=== PATIENT | male | born 1945 | race Caucasian/White ===

== ENCOUNTER 2022-08-27 01:12 | Outpatient (CLI) | payer MEDICARE, OTHER | END 2022-08-27 01:13 | disposition critical access hospital (66) | LOC: EMS 01:12 | DX: E11.649 Type 2 diabetes mellitus with hypoglycemia without coma (principal); Z96.41 Presence of insulin pump (external) (internal) | CPT/HCPCS: A0425; A0427 ==

== ENCOUNTER 2022-08-27 01:41 | Emergency (ER) | payer MEDICARE, OTHER ==
[2022-08-27] MEDS ORDERED: DEXTROSE 10% 250 ML IV STA (01:55)
[2022-08-27 03:30] LABS: BASOPHILS # (AUTO) 0.1 10^3/uL (0.0-0.1); BASOPHILS % (AUTO) 0.7 %; EOSINOPHILS # (AUTO) 0.2 10^3/uL (0.0-0.7); HCT - HEMATOCRIT 46.9 % (42.0-52.0); HGB - HEMOGLOBIN 15.6 g/dL (14.0-18.0); LYMPHOCYTES # (AUTO) 1.7 10^3/uL (1.5-3.5); LYMPHOCYTES % (AUTO) 19.5 %; MEAN CORPUSCULAR HEMOGLOBIN 32.6 pg (27.0-31.0); MEAN CORPUSCULAR HGB CONC 33.3 g/dL (32.0-36.0); MEAN CORPUSCULAR VOLUME 98.1 fL (80.0-94.0); MEAN PLATELET VOLUME 11.3 fL (7.4-11.4); MONOCYTES # (AUTO) 0.7 10^3/uL (0.0-1.0); MONOCYTES % (AUTO) 8.6 %; NEUTROPHILS # (AUTO) 5.9 10^3/uL (1.5-6.6); PLT - PLATELET COUNT 182 10^3/uL (130-450); RED BLOOD COUNT 4.78 10^6/uL (4.70-6.10); RED CELL DISTRIBUTION WIDTH 12.9 % (12.0-15.0); WHITE BLOOD COUNT 8.5 x10^3/uL (4.8-10.8)
[2022-08-27 03:43] LABS: ALBUMIN 3.9 g/dL (3.2-5.5); ALBUMIN/GLOBULIN RATIO 1.1 (1.0-2.2); CALCIUM 8.9 mg/dL (8.5-10.3); CREATININE 0.9 mg/dL (0.6-1.2); POTASSIUM 3.9 mmol/L (3.5-5.0); TOTAL PROTEIN 7.3 g/dL (6.7-8.2)
--- NOTE | 2022-08-27 04:24 | ED Physician Documentation ---
PD HPI ALTERED MENTAL STATUS - Stated complaint Stated Complaint: LOW BLOOD SUGAR - Chief complaint Chief Complaint: General - History obtained from History obtained from: Patient, Family - Additional information Additional information: HPI from patient as well as spouse. Spouse says they were asleep in bed when , at approximately 1 AM , woke due to patient's unusually loud, sonorous breathing. She tried to wake patient but he would not respond to verbal/tactile stimulus and thus she called 911. EMS found patient to have GCS 3 and FSBS 20. They administered 1 amp D50 with subsequent FSBS 105 and rapid improvement of GCS to 15 by the time of ED arrival. On ED arrival, FSBS is 76. Patient uses an insulin pump. He feels well, and has felt well during the day. He does not know why his blood sugar was low tonight. also notes that the pump is supposed to alarm when the blood sugar drops below a preset number and she did not hear any such alarm. Upon arrival to ED, the insulin pump is turned off (it is still detecting the blood sugar but delivery of insulin is shut off for now). 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 denies: Generalized weakness, Headache PD PAST MEDICAL HISTORY - Past Medical History Past Medical History: Yes Cardiovascular: Hypertension, High cholesterol Endocrine/Autoimmune: Type 1 diabetes - Allergies Allergies/Adverse Reactions: Allergies Allergy/AdvReac Type Severity Reaction Status Date / Time No Known Drug Allergies Allergy Verified 08/27/22 02:00 - Social History Does the pt smoke?: No Smoking Status: Never smoker Does the pt drink ETOH?: Yes ETOH Use: Wine Does the pt have substance abuse?: No - Immunizations Immunizations are current?: Yes - POLST Patient has POLST: No PD ED PE NORMAL - Vitals Vital signs reviewed: Yes - General General: Alert and oriented X 3, No acute distress, Well developed/nourished - HEENT HEENT: PERRL, EOMI, Moist mucous membranes - Neck Neck: Supple, no meningeal sign - Cardiac Cardiac: RRR, No murmur - Respiratory Respiratory: No respiratory distress, Clear bilaterally - Abdomen Abdomen: Soft, Non tender - Derm Derm: Normal color, Warm and dry - Neuro Neuro: Alert and oriented X 3, dog catcher 2-12 intact, No motor deficit, No sensory deficit, Normal speech Eye Opening: Spontaneous Motor: Obeys Commands Verbal: Oriented GCS Score: 15 - Psych Psych: Normal mood, Normal affect Results - Vitals Vitals: Oxygen O2 Source Room air - Labs Labs: Laboratory Tests 08/27/22 08/27/22 08/27/22 02:36 03:27 03:27 WBC 8.5 RBC 4.78 Hgb 15.6 Hct 46.9 MCV 98.1 H MCH 32.6 H MCHC 33.3 RDW 12.9 Plt Count 182 MPV 11.3 Neut # (Auto) 5.9 Lymph # (Auto) 1.7 [place] # (Auto) 0.7 Eos # (Auto) 0.2 Baso # (Auto) 0.1 Absolute Nucleated RBC 0.00 Nucleated RBC % 0.0 Sodium 140 Potassium 3.9 Chloride 105 Carbon Dioxide 23 Anion Gap 12.0 BUN 23 H Creatinine 0.9 Estimated GFR (MDRD) 82 L Glucose 130 H POC Whole Bld Glucose 130 H Calcium 8.9 Total Bilirubin 1.0 AST 20 ALT 17 Alkaline Phosphatase 39 L Total Protein 7.3 Albumin 3.9 Globulin 3.4 Albumin/Globulin Ratio 1.1 Lipase 24 PD Medical Decision Making - ED course Complexity details: reviewed results, re-evaluated patient, considered differential, d/w patient, d/w family ED course: Patient is given 25grams dextrose in ED (administered as 250ml D10), as his blood sugar had increased from 20 to 105 with D50 in field, but already was down to 76 by the time he arrives to ED. He remains asymptomatic during ED stay and his blood sugars (using his insulin pump to check) remain in 100-160 range during his stay. CBC and ER abdominal panel are without concerning results (blood sugar on ER abdominal panel is 130. It is unclear why his blood sugar dropped so low tonight. He says he did not have unusual PO intake (no more nor less than usual) at dinner and prior to going to bed. Malfunction of the insulin pump is possible, and I recommended that he keep the insulin pump off when napping and when going to sleep until he can follow up with his PMD to see if the pump is working properly. I advised him that he can keep the pump on when awake as long as someone is with him to monitor for signs/symptoms of hypoglycemia. Departure - Departure Disposition: 01 Home, Self Care Clinical Impression: Hypoglycemia Condition: Good Instructions: Hypoglycemia, ED Diabetes Hypoglycemia Insulin React Comments: Your blood sugar was dangerously low tonight. Fortunately, it responded to dextrose given through the IV in combination with turning off the insulin pump. The blood test performed in the emergency department tonight had no concerning findings and the blood sugar on the blood drawn in the ER was 130. It is unclear why your blood sugar got so low tonight. As we discussed, it is possible that the pump failed. I recommend that you use the pump to check your blood sugars throughout the day, and I think it is reasonable to have the pump on and functioning when you are awake; you should have someone with you today so that if it delivers too much insulin and/or your blood sugar drops too low, someone will be watching you to monitor your mental status. If you are going to take a nap or go to sleep, I recommend you turn the pump off entirely. As we discussed, it is acceptable for your blood sugar to run a little high (even into the 200s range) for a short period such as overnight, but it is an immediate danger if your blood sugar drops too low. Contact your primary care provider in the morning when the office opens to apprise them of the visit to the ER and arrange for immediate follow-up appointment so they can reassess the situation and hopefully assess whether or not there is a malfunction of the insulin pump. Discharge Date/Time: 08/27/22 05:33
[2022-08-27 05:33] VITALS: BP 129/76
== END 2022-08-27 05:33 | disposition home or self-care (01) ==
LOC: ED 01:41
DX: E10.649 Type 1 diabetes mellitus with hypoglycemia without coma (principal); I10 Essential (primary) hypertension
CPT/HCPCS: 36415; 80053; 83690; 85025; 96365; 99284; J3490

== ENCOUNTER 2023-01-04 14:14 | Outpatient (CLI) | payer MEDICARE | END 2023-01-04 14:15 | disposition critical access hospital (66) | LOC: EMS 14:14 | DX: R47.81 Slurred speech (principal); R47.1 Dysarthria and anarthria | CPT/HCPCS: A0425; A0429 ==

== ENCOUNTER 2023-01-04 14:19 | Emergency (ER) | payer MEDICARE ==
--- NOTE | 2023-01-04 14:26 | ED Physician Documentation ---
History of Present Illness - Stated complaint Stated Complaint: CODE STROKE - Additonal information Additional information: 77-year-old male is brought to the emergency department under code stroke protocol for evaluation of slurred speech and difficulty with word finding. Symptoms began at 1345. Patient is currently residing at [facility]. Has past medical history of type 1 diabetes, hyperlipidemia, hypertension, right toe cellulitis with associated chronic ulceration of the foot and osteomyelitis. 1420: Presentation to the emergency department in the ambulance rig I personally evaluated the patient. He was alert and oriented with no obvious focal neurodef icits. No slurred speech or difficulty with word finding. Initial NIHSS of 0. Blood glucose for EMS was 168. Reportedly the patient may have received an anticoagulant 10 days ago. In review of the [facility] medication report I do not see any current anticoagulants including Plavix or aspirin. meds: Augmentin BID, Doxycycline bid, lisinopril 20 qd, atorvastatin 20 mg qd, miralax prn, sennakot prn Review of Systems Skin: reports: Reviewed and negative Musculoskeletal: reports: Reviewed and negative Neurologic: reports: Difficulty speaking PD PAST MEDICAL HISTORY - Past Medical History Cardiovascular: Hypertension, High cholesterol Endocrine/Autoimmune: Type 1 diabetes - Present Medications Home Medications: Ambulatory Orders Medication Instructions Recorded Confirmed Aspirin [Terrell Aspirin] 81 mg PO DAILY 30 Days #30 tab 01/04/23 - Allergies Allergies/Adverse Reactions: Allergies Allergy/AdvReac Type Severity Reaction Status Date / Time No Known Drug Allergies Allergy Verified 08/27/22 02:00 - Social History Does the pt smoke?: No Smoking Status: Never smoker Does the pt drink ETOH?: Yes Does the pt have substance abuse?: No - Immunizations Immunizations are current?: Yes - POLST Patient has POLST: No PD ED PE NORMAL - General General: Alert and oriented X 3, No acute distress, Well developed/nourished - HEENT HEENT: Atraumatic - Cardiac Cardiac: RRR, No murmur, Strong equal pulses - Respiratory Respiratory: No respiratory distress, Clear bilaterally - Abdomen Abdomen: Normal bowel sounds, Soft - Derm Derm: Normal color, Warm and dry, Other (Right foot is wrapped with bandages.) - Extremities Extremities: No deformity - Neuro Neuro: Alert and oriented X 3, outreach director 2-12 intact Eye Opening: Spontaneous Motor: Obeys Commands Verbal: Oriented GCS Score: 15 Results - Vitals Vitals: Vital Signs - 24 hr 01/04/23 14:37 Temperature 37.1 C Heart Rate 86 Respiratory 20 Rate Blood Pressure 116/76 O2 Saturation 97 Oxygen O2 Source Room air - EKG (time done) 1503 EKG releavant findings:: EKG personally interpreted by author of this note. Relevant findings are: Rate: Rate (enter#) (85) Rhythm: NSR [place]: Normal Intervals: Normal [place]. No: Prolonged QT QRS: Normal Ischemia: Q waves (inferior leads) Compare to prior EKG: Old EKG unavailable Computer interpretation: Agree with computer - Labs Labs: Laboratory Tests 01/04/23 01/04/23 01/04/23 14:59 14:59 14:59 WBC 8.9 RBC 4.38 L Hgb 14.3 Hct 42.5 MCV 97.0 H MCH 32.6 H MCHC 33.6 RDW 12.5 Plt Count 451 H MPV 10.6 Neut # (Auto) 5.8 Lymph # (Auto) 1.8 [place] # (Auto) 0.9 Eos # (Auto) 0.3 Baso # (Auto) 0.1 Absolute Nucleated RBC 0.00 Nucleated RBC % 0.0 PT 14.0 H INR 1.3 H Sodium 134 L Potassium 3.5 Chloride 103 Carbon Dioxide 24 Anion Gap 7.0 BUN 19 Creatinine 0.8 Estimated GFR (MDRD) 94 Glucose 145 H Calcium 9.3 Total Bilirubin 0.8 AST 18 ALT 10 Alkaline Phosphatase 42 Total Protein 7.2 Albumin 3.4 Globulin 3.8 Albumin/Globulin Ratio 0.9 L Lipase 5 L - Rads (name of study) CT head stroke Relevant Findings:: Final report received (No intracranial hemorrhage is seen. Lateral ventricles are abnormally prominent and more prominent would be expected given the degree of underlying sulcal atrophy. Please consider normal pressure hydrocephalus.) cxr Relevant Findings:: Final report received (no acute cardiopulmonary process) angio head/neck Relevant Findings:: Final report received (No areas of hemodynamically significant stenosis, vascular occlusion or aneurysmal dilation within anterior circulation or posterior circulation. No areas of hemodynamically significant stenosis, occlusion or aneurysmal dilation within the neck vasculature) PD Medical Decision Making - ED course Complexity details: reviewed old records, reviewed results, re-evaluated patient, d/w patient ED course: 77-year-old male presents to the emergency department for evaluation of acute onset slurred speech and aphasia that occurred at 1345. By the time he had arrived to the emergency department at 1420 his NIHSS was 0 and the symptoms had fully resolved. Patient does have a past medical history most significant for insulin-dependent type 1 diabetes, hypertension and hyperlipidemia. He was recently discharged from [facility] for treatment of osteomyelitis of the right foot and is currently rehabilitating at [facility]. He has no history of A-fib, previous CVA or TIA. However given the symptoms he was triaged under code stroke protocol. My initial presentation and exam with him revealed an NIHSS of 0. He was sent however to the CT scanner and telestroke was notified. 1450: I have spoken with Dr. Nicole telestroke neurologist. Patient is not a TNK candidate given the resolved symptoms. He recommends angios of the head and neck. Loading the patient with aspirin and statin and considering outpatient Holter monitoring in the future. I did obtain CBC, electrolytes and PT/INR. Per my interpretation no acute worrisome abnormalities. His EKG showed sinus rhythm not atrial fibrillation. CT angios of the head and neck were without findings to suggest aneurysm dilation or stenosis. CT of the head was also unremarkable. On reevaluation the patient remains free of any focal neurodeficits. Clinically history is suggestive of a TIA. Patient will be discharged back to [facility]. The recommendation is to begin taking a daily aspirin after being loaded with 325 of aspirin here. He should be referred for an outpatient echocardiogram and Holter monitor. Advised that he will need prompt follow-up with his PCP in order to help arrange this. Usual emergent return precautions for worsening symptoms was discussed. Departure - Departure Disposition: Home, Self Care Clinical Impression: TIA (transient ischemic attack) Condition: Stable Record reviewed to determine appropriate education?: Yes Instructions: ED Transient Ischemic Attack Prescriptions: Aspirin [Terrell Aspirin] 81 mg PO DAILY 30 Days #30 tab Comments: You are seen today in the emergency department because for a brief period of time you had slurred speech and difficulty with word finding. By the time you presented to the emergency department your symptoms have fully resolved. As discussed at the bedside it sounds as though you have likely had a transient ischemic attack or a "mini stroke". This is a form of a stroke where there has been no permanent damage to the brain and the symptoms have fully resolved. You do have multiple risk factors for strokes that include age, gender diabetes and hypertension. You Do need to start taking a daily 81 mg aspirin. It is critical that you discuss this ED visit with your primary provider. You should be referred emergently for an echocardiogram of the heart as well as consideration of a Holter monitor. You can continue to take your other usual medications and antibiotics. Return immediately to the ER for any new or worsening symptoms NIHSS - Time Time: 14:20 - Level of Consciousness Level of consciousness: (0) Alert, Keenly responsive LOC Questions: (0) Answers both Q's correct LOC Commands: (0) Performs both correctly - Gaze Best Gaze: (0) Normal - Visual Visual: (0) No loss - Facial Palsy Facial Palsy: (0) Normal, symmetrical movement - Motor Arms (both separate) Motor Arm (right): (0) No drift Motor Arm (left): (0) No drift - Motor Legs (both separate) Motor Leg (right): (0) No drift Motor Leg (left): (0) No drift - Limb Ataxia Limb Ataxia: (0) Absent - Sensory Sensory: (0) Normal - Best Language Best Language: (0) No aphasia - Dysarthria Dysarthria: (0) Normal - Extinction and Inattention (formally neg Extinction and inattention: (0) No abnormality - Total Score/Results Total Score/Result: 0
--- NOTE | 2023-01-04 14:47 | CT Report ---
PROCEDURE: Head W/O Stroke Protocol INDICATIONS: aphasia, slurred speech TECHNIQUE: Noncontrast 4.5 mm thick angled axial sections acquired from the foramen magnum to the vertex, with c oronal reformats. For radiation dose reduction, the following was used: automated exposure control, adjustment of mA and/or kV according to patient size. COMPARISON: None. FINDINGS: Image quality: Excellent. CSF spaces: Basal cisterns are patent. No extra-axial fluid collections. Ventricles are symmetric, yet they are enlarged and are larger than would be expected, given the degree of sulcal atrophy. Brain: No midline shift. No intracranial masses or hemorrhage. [place]-white matter interface is norm al. Age-appropriate brain parenchymal volume loss and chronic small vessel ischemic change can be se en. Skull and face: Calvarium and visualized facial bones are intact, without suspicious lesions. Sinuses: Visualized sinuses and mastoids are clear. IMPRESSION: No intracranial hemorrhage is seen. The lateral ventricles are abnormally prominent and are more prominent than would be expected, given the degree of underlying sulcal atrophy. Please consider normal pressure hydrocephalus. Note: Case discussed by telephone with Chey Conn at 1:45 PM [place] time on 01/04/2023. This study fulfills neurological imaging criteria for inclusion or exclusion of acute stroke therapie s based on available published neurological imaging guidelines. Reviewed by: Theodore Martin MD on 01/04/2023 1:46 PM [facility] Approved by: Theodore Martin MD on 01/04/2023 1:46 PM AKDT Station ID: [id number]
[2023-01-04] MEDS ORDERED: ASPIRIN 325 MG TABLET PO STA (14:49)
--- NOTE | 2023-01-04 15:01 | XRAY Report ---
PROCEDURE: Chest 1 View X-Ray INDICATIONS: Chest Pain TECHNIQUE: One view of the chest was acquired. COMPARISON: None. FINDINGS: Surgical changes and devices: None. Lungs and pleura: No pleural effusions or pneumothorax. Lungs are clear. Mediastinum: Mediastinal contours appear normal. Heart size is normal. Bones and chest wall: No suspicious bony lesions. Overlying soft tissues appear unremarkable. IMPRESSION: No acute cardiopulmonary process. Reviewed by: Anahi De La Cruz MD on 01/04/2023 3:00 PM PDT Approved by: Anahi De La Cruz MD on 01/04/2023 3:00 PM PDT Station ID: [id number]
[2023-01-04 15:10] LABS: BASOPHILS # (AUTO) 0.1 10^3/uL (0.0-0.1); BASOPHILS % (AUTO) 0.9 %; EOSINOPHILS # (AUTO) 0.3 10^3/uL (0.0-0.7); EOSINOPHILS % (AUTO) 3.5 %; HCT - HEMATOCRIT 42.5 % (42.0-52.0); HGB - HEMOGLOBIN 14.3 g/dL (14.0-18.0); LYMPHOCYTES # (AUTO) 1.8 10^3/uL (1.5-3.5); LYMPHOCYTES % (AUTO) 20.7 %; MEAN CORPUSCULAR HEMOGLOBIN 32.6 pg (27.0-31.0); MEAN CORPUSCULAR HGB CONC 33.6 g/dL (32.0-36.0); MEAN PLATELET VOLUME 10.6 fL (7.4-11.4); MONOCYTES # (AUTO) 0.9 10^3/uL (0.0-1.0); MONOCYTES % (AUTO) 10.1 %; NEUTROPHILS # (AUTO) 5.8 10^3/uL (1.5-6.6); NEUTROPHILS % (AUTO) 64.6 %; PLT - PLATELET COUNT 451 10^3/uL (130-450); RED BLOOD COUNT 4.38 10^6/uL (4.70-6.10); RED CELL DISTRIBUTION WIDTH 12.5 % (12.0-15.0); WHITE BLOOD COUNT 8.9 x10^3/uL (4.8-10.8)
--- NOTE | 2023-01-04 15:12 | CT Report ---
PROCEDURE: CT Angio Head/Neck INDICATIONS: aphasia, slurred speech TECHNIQUE: Pre-contrast 4.5 mm thick sections acquired from the foramen magnum to the vertex. After the adminis tration of intravenous contrast, 1 mm thick sections acquired from the aortic arch through the [place]. Post-contrast 4.5 mm thick sections then re-acquired from the foramen magnum to the vert ex. 3-dimensional [id number] (MIP) and/or volume rendering reformats were acquired of the central intracranial vasculature and neck separately. For radiation dose reduction, the foll owing was used: automated exposure control, adjustment of mA and/or kV according to patient size. COMPARISON: CT head 01/04/2023 FINDINGS: Image quality: Excellent. BRAIN: Brain is grossly normal. No areas of acute hemorrhage or mass lesion. Atrophy and microvascular ische daniel changes are present. Brain is protocol for CTA. HEAD CT ANGIOGRAPHY: Anterior circulation: Intracranial internal carotid arteries are normal in size and flow. The flow within the paired anterior cerebral arteries is normal and symmetric. The flow within the middle cer ebral arteries is normal and symmetric. The anterior communicating artery is seen. No aneurysms are seen. Posterior circulation: Mild left vertebral artery dominance. Visualized portions of the vertebral art eries demonstrate normal caliber, and join to form a normal appearing basilar artery. Flow within th e posterior cerebral arteries is normal and symmetric. No aneurysms are seen. NECK CT ANGIOGRAPHY: Carotid system: The great vessels demonstrate a conventional anatomy as they arise from the aortic a rch. The origins of the common carotid arteries appear patent. The common carotid arteries demonstr ate normal caliber and courses. The bifurcation regions are both widely patent. The internal caroti d arteries demonstrate normal calibers and courses. Posterior circulation: The origins of the vertebral arteries both appear widely patent. The more montes perior extracranial portions of both vertebral arteries also demonstrate normal courses and calibers. They join to form a normal appearing basilar artery. Soft tissues: Visualized neck soft tissues demonstrate no suspicious abnormalities. Bones: No suspicious bony lesions. Visualized cervical spine appears normally aligned. IMPRESSION: 1. No acute intracranial process. 2. No areas of hemodynamically significant stenosis, vascular occlusion or aneurysmal dilation within the anterior circulation. 3. No areas of hemodynamically significant stenosis, vascular occlusion or aneurysmal dilation within the posterior circulation. 4. There are no areas of hemodynamically significant stenosis, vascular occlusion or aneurysmal dilat ion within the neck vasculature. The estimate of stenosis included in the report of the imaging study was calculated using the NASCET method Reviewed by: Anahi De La Cruz MD on 01/04/2023 3:11 PM PDT Approved by: Anahi De La Cruz MD on 01/04/2023 3:11 PM PDT Station ID: [id number]
[2023-01-04 15:20] LABS: ALBUMIN 3.4 g/dL (3.2-5.5); ALBUMIN/GLOBULIN RATIO 0.9 (1.0-2.2); BILIRUBIN,TOTAL 0.8 mg/dL (0.2-1.0); CALCIUM 9.3 mg/dL (8.5-10.3); CREATININE 0.8 mg/dL (0.6-1.3); INR 1.3 (0.8-1.2); POTASSIUM 3.5 mmol/L (3.5-4.5); TOTAL PROTEIN 7.2 g/dL (6.4-8.9)
[2023-01-04 17:26] VITALS: BP 148/65; O2SAT 100
[2023-01-04] MEDS ORDERED: iohexoL-300 100 ML VIAL IVP ONE (20:07)
== END 2023-01-04 17:30 | disposition home or self-care (01) ==
LOC: EDUNIT# → ED 14:19
DX: G45.9 Transient cerebral ischemic attack, unspecified (principal); I10 Essential (primary) hypertension; E10.9 Type 1 diabetes mellitus without complications
CPT/HCPCS: 36415; 70450; 70496; 70498; 71045; 80053; 83690; 85025; 85610; 93005; 99284; A9270; Q9967

== ENCOUNTER 2023-01-10 08:00 | Outpatient (CLI) | payer MEDICARE ==
[2023-01-10 20:35] LABS: BASOPHILS # (AUTO) 0.1 10^3/uL (0.0-0.1); BASOPHILS % (AUTO) 1.1 %; EOSINOPHILS # (AUTO) 0.3 10^3/uL (0.0-0.7); HCT - HEMATOCRIT 47.3 % (42.0-52.0); HGB - HEMOGLOBIN 15.6 g/dL (14.0-18.0); LYMPHOCYTES % (AUTO) 28.8 %; MEAN CORPUSCULAR HEMOGLOBIN 32.2 pg (27.0-31.0); MEAN CORPUSCULAR VOLUME 97.5 fL (80.0-94.0); MEAN PLATELET VOLUME 11.2 fL (7.4-11.4); MONOCYTES # (AUTO) 0.8 10^3/uL (0.0-1.0); MONOCYTES % (AUTO) 11.3 %; NEUTROPHILS # (AUTO) 3.8 10^3/uL (1.5-6.6); NEUTROPHILS % (AUTO) 54.7 %; PLT - PLATELET COUNT 369 10^3/uL (130-450); RED BLOOD COUNT 4.85 10^6/uL (4.70-6.10); RED CELL DISTRIBUTION WIDTH 12.6 % (12.0-15.0)
[2023-01-10 20:54] LABS: ALBUMIN 3.9 g/dL (3.2-5.5); BILIRUBIN,TOTAL 1.1 mg/dL (0.2-1.0); CREATININE 0.8 mg/dL (0.6-1.3); POTASSIUM 3.8 mmol/L (3.5-4.5); TOTAL PROTEIN 7.8 g/dL (6.4-8.9)
== END 2023-01-10 23:59 | disposition home or self-care (01) ==
LOC: LAB.R 08:00
DX: M62.81 Muscle weakness (generalized) (principal); R26.89 Other abnormalities of gait and mobility; I10 Essential (primary) hypertension
CPT/HCPCS: 36415; 80053; 85025

== ENCOUNTER 2023-01-17 13:42 | Outpatient (CLI) | payer MEDICARE ==
[2023-01-17 13:48] LABS: BASOPHILS # (AUTO) 0.1 10^3/uL (0.0-0.1); BASOPHILS % (AUTO) 0.8 %; EOSINOPHILS # (AUTO) 0.4 10^3/uL (0.0-0.7); EOSINOPHILS % (AUTO) 4.4 %; HCT - HEMATOCRIT 42.9 % (42.0-52.0); HGB - HEMOGLOBIN 14.6 g/dL (14.0-18.0); LYMPHOCYTES # (AUTO) 2.1 10^3/uL (1.5-3.5); LYMPHOCYTES % (AUTO) 24.9 %; MEAN CORPUSCULAR HEMOGLOBIN 32.5 pg (27.0-31.0); MEAN CORPUSCULAR VOLUME 95.5 fL (80.0-94.0); MEAN PLATELET VOLUME 11.5 fL (7.4-11.4); MONOCYTES # (AUTO) 0.8 10^3/uL (0.0-1.0); MONOCYTES % (AUTO) 9.1 %; NEUTROPHILS % (AUTO) 60.6 %; PLT - PLATELET COUNT 338 10^3/uL (130-450); RED BLOOD COUNT 4.49 10^6/uL (4.70-6.10); RED CELL DISTRIBUTION WIDTH 12.3 % (12.0-15.0); WHITE BLOOD COUNT 8.3 x10^3/uL (4.8-10.8)
[2023-01-17 14:05] LABS: ALBUMIN 3.8 g/dL (3.2-5.5); ALBUMIN/GLOBULIN RATIO 1.1 (1.0-2.2); BILIRUBIN,TOTAL 0.8 mg/dL (0.2-1.0); CALCIUM 9.7 mg/dL (8.5-10.3); CREATININE 0.9 mg/dL (0.6-1.3); TOTAL PROTEIN 7.2 g/dL (6.4-8.9)
== END 2023-01-17 13:43 | disposition home or self-care (01) ==
LOC: LAB.R 13:42
PROVIDERS: ATTEND Registered Nurse
DX: M86.171 Other acute osteomyelitis, right ankle and foot (principal)
CPT/HCPCS: 80053; 85025

== ENCOUNTER 2023-04-02 18:56 | Emergency (ER) | payer MEDICARE ==
--- NOTE | 2023-04-02 19:28 | ED Physician Documentation ---
History of Present Illness - Stated complaint Stated Complaint: FATIGUE/NAUSEA/VOMIT - Chief complaint Chief Complaint: General - History obtained from History obtained from: Patient, Family - Additonal information Additional information: 77-year-old gentleman with longstanding diabetes and peripheral neuropathy due to same with insulin pump in place. Last 3 days or so he has been feeling ill with profound fatigue and chills. He is still in wound care regarding the right foot and has an active ulcer there. Denies cough, abdominal pain, changes in bowel movements, urinary symptoms. PD PAST MEDICAL HISTORY - Past Medical History Past Medical History: Yes Cardiovascular: Hypertension, High cholesterol Endocrine/Autoimmune: Type 1 diabetes - Past Surgical History Past Surgical History: Yes - Present Medications Home Medications: Ambulatory Orders Medication Instructions Recorded Confirmed Aspirin [Green Aspirin] 81 mg PO DAILY 30 Days #30 tab 01/04/23 04/02/23 Amox/Clav 875/125 [Augmentin] 1 each PO Q12H #20 tablet 04/02/23 Insulin Aspart [Novolog] 100 unit SQ .CONTINUOUS 04/02/23 04/02/23 Lisinopril [Zestril] 20 mg PO DAILY 04/02/23 04/02/23 Simvastatin [Zocor] 20 mg PO DAILY 04/02/23 04/02/23 - Allergies Allergies/Adverse Reactions: Allergies Allergy/AdvReac Type Severity Reaction Status Date / Time No Known Drug Allergies Allergy Verified 04/02/23 19:14 - Social History Does the pt smoke?: No Smoking Status: Never smoker Does the pt drink ETOH?: Yes Does the pt have substance abuse?: No - Immunizations Immunizations are current?: Yes - POLST Patient has POLST: No PD ED PE NORMAL - Vitals Vital signs reviewed: Yes (Mild resting tachycardia) - General General: Alert and oriented X 3, Other (Having shaking chills) - HEENT HEENT: PERRL, EOMI - Neck Neck: Supple, no meningeal sign, No bony TTP - Cardiac Cardiac: No murmur, Other (Mild resting tachycardia without murmur, regular) - Respiratory Respiratory: No respiratory distress, Clear bilaterally - Abdomen Abdomen: Non tender - Back Back: No CVA TTP, No spinal TTP - Derm Derm: Normal color, Warm and dry - Extremities Extremities: Other (2 x 1 cm purulent based ulcer with mild overlying cellulitis laterally on the right foot over the fifth metatarsal) - Neuro Neuro: Alert and oriented X 3, Normal speech Results - Vitals Vitals: Vital Signs - 24 hr 04/02/23 19:03 Temperature 37.3 C Heart Rate 102 H Respiratory 18 Rate Blood Pressure 132/64 H O2 Saturation 96 Oxygen O2 Source Room air - EKG (time done) 1933 EKG releavant findings:: EKG personally interpreted by author of this note. Relevant findings are: Rate: Rate (enter#) (101) Rhythm: Sinus tachycardia, LAE [place]: Normal Intervals: Normal SC QRS: Low voltage Ischemia: Non specific changes - Labs Labs: Microbiology 04/02/23 19:49 Wound Culture - Preliminary Foot - Right Laboratory Tests 04/02/23 04/02/23 04/02/23 19:10 19:42 19:42 WBC 12.1 H RBC 4.24 L Hgb 13.8 L Hct 42.4 MCV 100.0 H MCH 32.5 H MCHC 32.5 RDW 13.3 Plt Count 330 MPV 10.2 Neut # (Auto) 10.3 H Lymph # (Auto) 0.5 L Eddy # (Auto) 1.2 H Eos # (Auto) 0.0 Baso # (Auto) 0.1 Absolute Nucleated RBC 0.00 Nucleated RBC % 0.0 ESR Sodium 132 L Potassium 4.7 H Chloride 98 L Carbon Dioxide 25 Anion Gap 9.0 BUN 23 H Creatinine 1.0 Estimated GFR (MDRD) 72 L Glucose 188 H POC Whole Bld Glucose 167 H Lactic Acid Calcium 9.3 Magnesium 1.6 L Total Bilirubin 1.3 H AST 15 ALT 6 L Alkaline Phosphatase 42 C-Reactive Protein 13.8 H Total Protein 7.5 Albumin 3.9 Globulin 3.6 Albumin/Globulin Ratio 1.1 Ethyl Alcohol < 10.0 04/02/23 04/02/23 19:42 19:42 WBC RBC Hgb Hct MCV MCH MCHC RDW Plt Count MPV Neut # (Auto) Lymph # (Auto) Eddy # (Auto) Eos # (Auto) Baso # (Auto) Absolute Nucleated RBC Nucleated RBC % ESR 67 H Sodium Potassium Chloride Carbon Dioxide Anion Gap BUN Creatinine Estimated GFR (MDRD) Glucose POC Whole Bld Glucose Lactic Acid 1.5 Calcium Magnesium Total Bilirubin AST ALT Alkaline Phosphatase C-Reactive Protein Total Protein Albumin Globulin Albumin/Globulin Ratio Ethyl Alcohol - Rads (name of study) Right foot x-ray. I think he has just a little bit of erosion at the distal metacarpal. The radiologist did not note this finding. Relevant Findings:: Final report received, EMP independent interpretation of test PD Medical Decision Making - ED course ED course: 77-year-old gentleman with history of diabetes and peripheral neuropathy and osteomyelitis of the right second toe presents with systemic symptoms suggestive of some sort of infectious process. On examination he does have a deep purulent ulcer to the lateral side of the right foot which was cultured on exam. Work-up here in the emergency department demonstrated elevated white count with elevated sed rate and CRP all consistent with bacterial infection. That said he is nontoxic with no signs of sepsis. X-ray to my eye demonstrates very mild erosive changes of the distal right fifth metatarsal although the radiologist did not comment on this, that said it is at the location of his ulcer. I presume he has osteomyelitis there given the above findings and is started on antibiotics. Offered either inpatient admission for orthopedic consultation versus outpatient antibiotics with follow-up with his personal direct marketing manager and he prefers the latter. Departure - Departure Disposition: Home, Self Care Clinical Impression: Diabetic infection of right foot Condition: Good Record reviewed to determine appropriate education?: Yes Instructions: Osteomyelitis Dc Prescriptions: Amox/Clav 875/125 [Augmentin] 1 each PO Q12H #20 tablet Comments: To my eye it looks like the infection is just down to the distal fifth metatarsal bone of the right foot. The radiologist did not necessarily agree with this but given that the location of the infected ulcer is overlying that, reasonable for you to follow-up closely with your direct marketing manager for evaluation and either potential repeat imaging or what ever approach they think is appropriate. Until then the antibiotic should make you feel better from the infectious symptoms i.e. the chills and aches and fatigue. Call your doctor to arrange a follow-up appointment, make the next available appointment. In the interim, return anytime if worse or if new symptoms develop. We are performing a wound culture, the results should be done in 48-72 hours. If antibiotic change is necessary we will call you. Forms: PCP List
[2023-04-02 20:03] LABS: BASOPHILS # (AUTO) 0.1 10^3/uL (0.0-0.1); BASOPHILS % (AUTO) 0.6 %; HCT - HEMATOCRIT 42.4 % (42.0-52.0); HGB - HEMOGLOBIN 13.8 g/dL (14.0-18.0); LYMPHOCYTES # (AUTO) 0.5 10^3/uL (1.5-3.5); LYMPHOCYTES % (AUTO) 4.1 %; MEAN CORPUSCULAR HEMOGLOBIN 32.5 pg (27.0-31.0); MEAN CORPUSCULAR HGB CONC 32.5 g/dL (32.0-36.0); MEAN PLATELET VOLUME 10.2 fL (7.4-11.4); MONOCYTES # (AUTO) 1.2 10^3/uL (0.0-1.0); MONOCYTES % (AUTO) 9.8 %; NEUTROPHILS # (AUTO) 10.3 10^3/uL (1.5-6.6); NEUTROPHILS % (AUTO) 85.3 %; PLT - PLATELET COUNT 330 10^3/uL (130-450); RED BLOOD COUNT 4.24 10^6/uL (4.70-6.10); RED CELL DISTRIBUTION WIDTH 13.3 % (12.0-15.0); WHITE BLOOD COUNT 12.1 x10^3/uL (4.8-10.8)
[2023-04-02 20:13] LABS: ALBUMIN 3.9 g/dL (3.2-5.5); CRP - C-REACTIVE PROTEIN 13.8 mg/dL (<0.5); ETOH - ETHANOL < 10.0 mg/dL; MAGNESIUM 1.6 mg/dL (1.7-2.3)
[2023-04-02 20:18] LABS: ALBUMIN/GLOBULIN RATIO 1.1 (1.0-2.2); ALKALINE PHOSPHATASE 42 IU/L (42-121); ALT ALANINE AMINOTRANSFERASE 6 IU/L (10-60); AST ASPARTATE AMINOTRANSFERASE 15 IU/L (10-42); BILIRUBIN,TOTAL 1.3 mg/dL (0.2-1.0); BUN - BLOOD UREA NITROGEN 23 mg/dL (6-20); CALCIUM 9.3 mg/dL (8.5-10.3); CARBON DIOXIDE - CO2 25 mmol/L (21-32); CHLORIDE 98 mmol/L (101-111); GFR - MDRD 72 (>89); GLUCOSE 188 mg/dL (74-104); POTASSIUM 4.7 mmol/L (3.5-4.5); SODIUM 132 mmol/L (135-145); TOTAL PROTEIN 7.5 g/dL (6.4-8.9)
[2023-04-02] MEDS ORDERED: AMPICILLIN/SULBACTAM 3 GM in SODIUM CHLORIDE 0.9% MINIBAG 100 ML IV STA (21:00)
--- NOTE | 2023-04-02 21:03 | XRAY Report ---
PROCEDURE: Foot 3 View RT INDICATIONS: foot infection TECHNIQUE: 3 views of the foot were acquired. COMPARISON: None. FINDINGS: Bones: Second digit distal radial resection. No osseous erosions seen. No fractures or dislocations. Degenerative changes are seen. No suspicious bony lesions. Soft tissues: No suspicious soft tissue calcifications or masses. Distal arterial vascular calcifi cations. IMPRESSION: No osseous erosion identified. Second digit distal radial resection. Reviewed by: Allen Gallo MD on 04/02/2023 9:02 PM [facility] Approved by: Allen Gallo MD on 04/02/2023 9:02 PM [facility] Station ID: [id number]
[2023-04-02 21:58] VITALS: BP 130/65; O2SAT 97
--- NOTE | 2023-04-05 12:00 | ED Physician Documentation ---
ED Addendum - Addendum Addendum: 04/05/23 11:59 Recent cx + for serratia. Dx with osteo of the toe. Likely not sensitive to Augmentin. Rx changed to cipro. Nursing staff tasked to notify pt.
== END 2023-04-02 21:58 | disposition home or self-care (01) ==
LOC: ED 18:56
DX: E10.621 Type 1 diabetes mellitus with foot ulcer (principal); L97.518 Non-pressure chronic ulcer of other part of right foot with other specified severity; E10.42 Type 1 diabetes mellitus with diabetic polyneuropathy; L03.115 Cellulitis of right lower limb; M86.8X7 Other osteomyelitis, ankle and foot; B96.89 Other specified bacterial agents as the cause of diseases classified elsewhere; Z96.41 Presence of insulin pump (external) (internal)
CPT/HCPCS: 36415; 73630; 80053; 83605; 83735; 85025; 85651; 86140; 87040; 87070; 87077; 87181; 87205; 93005; 96365; 99284; G0480; 80320

== ENCOUNTER 2023-05-09 11:00 | Outpatient (CLI) | payer MEDICARE ==
[2023-05-09 11:09] LABS: BASOPHILS # (AUTO) 0.1 10^3/uL (0.0-0.1); BASOPHILS % (AUTO) 1.2 %; EOSINOPHILS # (AUTO) 0.5 10^3/uL (0.0-0.7); EOSINOPHILS % (AUTO) 8.5 %; HCT - HEMATOCRIT 44.8 % (42.0-52.0); HGB - HEMOGLOBIN 14.8 g/dL (14.0-18.0); LYMPHOCYTES # (AUTO) 1.8 10^3/uL (1.5-3.5); LYMPHOCYTES % (AUTO) 30.7 %; MEAN CORPUSCULAR HEMOGLOBIN 31.2 pg (27.0-31.0); MEAN CORPUSCULAR VOLUME 94.3 fL (80.0-94.0); MEAN PLATELET VOLUME 11.9 fL (7.4-11.4); MONOCYTES # (AUTO) 0.6 10^3/uL (0.0-1.0); MONOCYTES % (AUTO) 10.4 %; NEUTROPHILS # (AUTO) 2.8 10^3/uL (1.5-6.6); PLT - PLATELET COUNT 250 10^3/uL (130-450); RED BLOOD COUNT 4.75 10^6/uL (4.70-6.10); RED CELL DISTRIBUTION WIDTH 13.4 % (12.0-15.0); WHITE BLOOD COUNT 5.8 x10^3/uL (4.8-10.8)
[2023-05-09 11:22] LABS: ALBUMIN 3.7 g/dL (3.2-5.5); ALBUMIN/GLOBULIN RATIO 1.1 (1.0-2.2); CREATININE 0.7 mg/dL (0.6-1.3); POTASSIUM 4.1 mmol/L (3.5-4.5); TOTAL PROTEIN 7.1 g/dL (6.4-8.9)
== END 2023-05-09 11:01 | disposition home or self-care (01) ==
LOC: LAB.R 11:00
PROVIDERS: ATTEND Internal Medicine Infectious Disease
DX: M86.9 Osteomyelitis, unspecified (principal)
CPT/HCPCS: 80053; 85025

== ENCOUNTER 2023-05-16 13:24 | Outpatient (CLI) | payer MEDICARE ==
[2023-05-16 13:37] LABS: BASOPHILS # (AUTO) 0.1 10^3/uL (0.0-0.1); BASOPHILS % (AUTO) 1.5 %; EOSINOPHILS # (AUTO) 0.4 10^3/uL (0.0-0.7); EOSINOPHILS % (AUTO) 6.3 %; HCT - HEMATOCRIT 42.5 % (42.0-52.0); LYMPHOCYTES # (AUTO) 1.3 10^3/uL (1.5-3.5); LYMPHOCYTES % (AUTO) 19.8 %; MEAN CORPUSCULAR HEMOGLOBIN 31.6 pg (27.0-31.0); MEAN CORPUSCULAR HGB CONC 32.9 g/dL (32.0-36.0); MEAN CORPUSCULAR VOLUME 95.9 fL (80.0-94.0); MEAN PLATELET VOLUME 11.9 fL (7.4-11.4); MONOCYTES # (AUTO) 0.8 10^3/uL (0.0-1.0); MONOCYTES % (AUTO) 12.2 %; PLT - PLATELET COUNT 285 10^3/uL (130-450); RED BLOOD COUNT 4.43 10^6/uL (4.70-6.10); RED CELL DISTRIBUTION WIDTH 13.5 % (12.0-15.0); WHITE BLOOD COUNT 6.7 x10^3/uL (4.8-10.8)
[2023-05-16 14:41] LABS: ALBUMIN 3.6 g/dL (3.2-5.5); ALBUMIN/GLOBULIN RATIO 1.1 (1.0-2.2); BILIRUBIN,TOTAL 0.9 mg/dL (0.2-1.0); CALCIUM 9.1 mg/dL (8.5-10.3); CREATININE 0.6 mg/dL (0.6-1.3); POTASSIUM 4.2 mmol/L (3.5-4.5); TOTAL PROTEIN 6.8 g/dL (6.4-8.9)
== END 2023-05-16 13:25 | disposition home or self-care (01) ==
LOC: LAB.R 13:24
PROVIDERS: ATTEND Internal Medicine Infectious Disease
DX: M86.8X9 Other osteomyelitis, unspecified sites (principal)
CPT/HCPCS: 80053; 85025

== ENCOUNTER 2023-05-30 11:55 | Outpatient (CLI) | payer MEDICARE ==
[2023-05-30 12:28] LABS: BASOPHILS # (AUTO) 0.1 10^3/uL (0.0-0.1); BASOPHILS % (AUTO) 0.8 %; EOSINOPHILS # (AUTO) 0.5 10^3/uL (0.0-0.7); EOSINOPHILS % (AUTO) 5.7 %; HCT - HEMATOCRIT 43.4 % (42.0-52.0); HGB - HEMOGLOBIN 14.8 g/dL (14.0-18.0); LYMPHOCYTES # (AUTO) 1.8 10^3/uL (1.5-3.5); LYMPHOCYTES % (AUTO) 21.2 %; MEAN CORPUSCULAR HGB CONC 34.1 g/dL (32.0-36.0); MEAN CORPUSCULAR VOLUME 96.9 fL (80.0-94.0); MEAN PLATELET VOLUME 11.6 fL (7.4-11.4); MONOCYTES # (AUTO) 1.2 10^3/uL (0.0-1.0); MONOCYTES % (AUTO) 13.8 %; NEUTROPHILS % (AUTO) 58.3 %; PLT - PLATELET COUNT 245 10^3/uL (130-450); RED BLOOD COUNT 4.48 10^6/uL (4.70-6.10); RED CELL DISTRIBUTION WIDTH 13.9 % (12.0-15.0); WHITE BLOOD COUNT 8.5 x10^3/uL (4.8-10.8)
[2023-05-30 12:44] LABS: ALBUMIN 3.9 g/dL (3.2-5.5); ALBUMIN/GLOBULIN RATIO 1.2 (1.0-2.2); BILIRUBIN,TOTAL 1.6 mg/dL (0.2-1.0); CALCIUM 9.2 mg/dL (8.5-10.3); CREATININE 0.8 mg/dL (0.6-1.3); POTASSIUM 4.3 mmol/L (3.5-4.5); TOTAL PROTEIN 7.2 g/dL (6.4-8.9)
== END 2023-05-30 11:56 | disposition home or self-care (01) ==
LOC: LAB.R 11:55
DX: M86.9 Osteomyelitis, unspecified (principal)
CPT/HCPCS: 80053; 85025

== ENCOUNTER 2023-06-15 03:18 | Outpatient (CLI) | payer MEDICARE | END 2023-06-15 23:59 | disposition left against medical advice (07) | LOC: EMS 03:18 | DX: E11.65 Type 2 diabetes mellitus with hyperglycemia (principal); Z79.4 Long term (current) use of insulin; Z96.41 Presence of insulin pump (external) (internal) ==